=== PATIENT | female | born 1970 | race Caucasian/White ===

== ENCOUNTER 2024-03-02 12:28 | Emergency (ER) | payer MEDICAID ==
[~2024-03-02] VITALS: Ht 152.4 cm; Wt 63.5 kg
[2024-03-02 12:40] VITALS: BP_SYST 148; PULSE 79; RESP 19; TEMP 98.5; O2SAT 97
[2024-03-02] MEDS: KETOROLAC TROMETHAMINE 30 MG VIAL IVP ONE (14:46)
[2024-03-02] MEDS: ONDANSETRON HCL 4 MG/2 ML VIAL IVP ONE (14:47)
[2024-03-02 14:55] LABS: BASOPHILS # (AUTO) 0.1 K/uL (0.0-0.2); BASOPHILS % (AUTO) 0.4 % (0.0-2.0); EOSINOPHILS % (AUTO) 0.2 % (0.0-4.0); HEMATOCRIT 41.5 % (36-48); HEMOGLOBIN 14.3 g/dL (12.0-16.0); LYMPHOCYTES # (AUTO) 1.2 K/uL (1.0-5.5); MEAN CORPUSCULAR HEMOGLOBIN 30 pg (27-31); MEAN CORPUSCULAR HGB CONC 35 % (32-36); MEAN CORPUSCULAR VOLUME 87 fL (79.0-98.0); MONOCYTES # (AUTO) 0.9 K/uL (0.0-1.0); MONOCYTES % (AUTO) 5.8 % (1.7-9.3); NEUTROPHILS # (AUTO) 13.4 K/uL (1.8-7.7); NEUTROPHILS % (AUTO) 85.6 % (40.0-70.0); PLATELET COUNT (AUTO) 376 K/uL (130-430); RED BLOOD CELL COUNT(AUTO) 4.79 MIL/uL (4.2-6.2); RED CELL DISTRIBUTION WIDTH 13.4 % (9.0-15.0); WHITE BLOOD COUNT (AUTO) 15.6 K/uL (4.8-10.8)
[2024-03-02 15:14] LABS: ALBUMIN 3.9 g/dL (3.4-4.8); CALCIUM 8.6 mg/dL (8.4-11.0); CREATININE 1.02 mg/dL (0.55-1.30); POTASSIUM 4.1 mmol/L (3.5-5.1); TOTAL BILIRUBIN 0.7 mg/dL (0.0-1.0); TOTAL PROTEIN, SERUM 8.7 g/dL (6.4-8.3)
[2024-03-02 15:15] LABS: BILIRUBIN,DIRECT 0.1 mg/dL (0.0-0.3)
[2024-03-02 15:18] LABS: BILIRUBIN,URINE NEGATIVE (NEGATIVE); BLOOD, URINE NEGATIVE (NEGATIVE); COLOR,URINE YELLOW (YELLOW); GLUCOSE,URINE NEGATIVE (NEGATIVE); KETONES,URINE NEGATIVE (NEGATIVE); LEUKOCYTE ESTERASE ,URINE TRACE (NEGATIVE); NITRITE, URINE NEGATIVE (NEGATIVE); PROTEIN URINE 1+ (NEGATIVE); UROBILINOGEN,URINE 0.2 (0.2-1.0)
[2024-03-02] MEDS: NACL 0.9% 1,000 ML IV ONE (15:22)
[2024-03-02 15:36] LABS: CLARITY/URINE HAZY (CLEAR)
[2024-03-02 16:02] LABS: BACTERIA,URINE FEW /HPF (None Seen); MUCUS,URINE None Seen /LPF (None Seen); RBC,URINE NONE SEEN /HPF (0-3)
[2024-03-02] MEDS ORDERED: cefTRIAXone 1 GM VIAL ONE (16:26)
[2024-03-02] MEDS ORDERED: ONDA-8 TL (17:02)
[2024-03-02] MEDS ORDERED: CEPH-548 PO (17:02)
[2024-03-02] MEDS ORDERED: IBUP-1969 PO (17:02)
[2024-03-02 17:30] VITALS: BP_SYST 122; PULSE 66; RESP 16; O2SAT 99
[2024-03-02] MEDS: cefTRIAXone 1 GM in D5W 50 ML IV ONE (17:37)
== END 2024-03-02 17:30 | disposition home or self-care (01) ==
LOC: SED 12:28
DX: N12 Tubulo-interstitial nephritis, not specified as acute or chronic (principal); R10.9 Unspecified abdominal pain
CPT/HCPCS: 99284; 96365; 96375; 80076; 80048; 81001; 83690; 85025; 87086; 36415; 81000; 81015; J0696; J1885; J2405; J7030; 96361